=== PATIENT | male | born 1950 | race Caucasian/White ===

== ENCOUNTER → 2018-10-29 09:16 | Outpatient (CLI) | payer MEDICARE, OTHER ==
--- NOTE | ~2018-10-29 | ST ---
PATIENT:ELMA DIAZ MEDICAL RECORD: [id number] SEX: M LOCATION:[facility] ORDER #: ADMISSION DATE: 10/29/18 AGE OF PATIENT: 68 REFERRING PHYSICIAN: INTERPRETING PHYSICIAN: JESSICA RAMIREZ MD DATE OF SERVICE: 10/29/2018 PROCEDURE: Nuclear stress test. INDICATION: Angina, abnormal ECG, hyperlipidemia, family history of coronary artery disease. He was exercised on standard Matt protocol for 7 minutes 50 seconds, terminated due to achievement of max target heart rate response with 32 mCi of sestamibi injected at peak stress, 11 mCi were injected previously for rest images. FINDINGS: Gated SPECT reveals preserved ejection fraction of 57% with good wall motioning, thickening, and brightening throughout all segments. SPECT imaging Cardiolite was used as myocardial perfusion agent. There is reversible ischemia inferiorly. This includes basal, mid, and apical inferior segments. The degree of reversibility is moderate. The amount of myocardium involved is moderate. OVERALL IMPRESSION: 1. This is an abnormal nuclear stress test with moderate reversible ischemia inferiorly. 2. Gated SPECT reveals preserved ejection fraction of 57%. In this patient with ongoing symptomatology, the current scan does suggest the presence of hemodynamically significant coronary artery disease. We will proceed with coronary angiography as a followup study. TRANSINT:[id number] Voice Confirmation ID: [id number] DOCUMENT ID: [id number] JESSICA RAMIREZ MD CC: [id number] DICTATION DATE: 10/31/18 1036 TECHNICAL TESTING ENGINEER: 10/31/181909 DEP CLI 10/29/18 [facility] [address] [place] [address]
== END | disposition home or self-care (01) ==
LOC: D.HCCARDIO 10-18 10:30
DX: I20.9 Angina pectoris, unspecified (principal)

== ENCOUNTER 2018-11-13 11:24 | Outpatient (CLI) | payer MEDICARE, OTHER ==
[~2018-11-13] VITALS: Ht 193 cm; Wt 96.4 kg
--- NOTE | ~2018-11-13 | HEMODYNAMI ---
PATIENT:ELMA DIAZ MEDICAL RECORD: [id number] : 52 LOCATION:[facility] ADMISSION DATE: 11/13/18 Generatedon:11/13/201814:34 Patient name: ELMA DIAZ Patient #: [id number] SSN: DO B: 1950 Date of study: 11/13/2018 Page: Of Hemodynamic Procedure Report Patient Data Patient Demographics Procedure consent was obtained First Name: ELMA Gender: Male Last Name: JOE : 1950 Middle Initial: JADE Age: 68 year(s) Patient #: [id number] Race: Unknown Additional ID: [id number] Contact details Address: [address] [place] [address] State: [place] City: [place] Zip code: [address] Admission Admission Data Admission Date: 11/13/2018 Admission Time: 11:24 Height (in.): 75 BSA: 2.24 (m2) Height (cm.): 190.5 BMI: 26.37 (kg/m2) Weight (lbs.): 211 Weight (kg.): 95.71 Lab Results Lab Result Date: 11/13/2018 Lab Result Time: 0:00 Biochemistry Name Units Result Min Max BUN mg/dl 17 --(---*)-- 7 18 Creatinine mg/dl 1.3 --(---*)-- 0.6 1.3 CBC Name Units Result Min Max Hemoglobin g/dl 14.7 --(-*--)-- 13.5 17.5 Procedure Procedure Types Cath Procedure Diagnostic Procedure LHC LHC w/Coronaries Procedure Description Procedure Date Procedure Date: 11/13/2018 Procedure Start Time: 14:25 Procedure End Time: 14:32 Procedure Staff Name Function Klever Leung MD Performing Physician Azul Rascon RT Monitor Lucian Gupta RN Nurse Harmony Smith RT Scrub Procedure Data Cath Procedure Fluoroscopy Diagnostic fluoroscopy Total fluoroscopy Time: 1.1 time: 1.1 min min Diagnostic fluoroscopy Total fluoroscopy dose: 258 dose: 258 mGy mGy Contrast Material Contrast Material Type Amount (ml) Isovue 300 41 Entry Location Entry Primary Successful Side Size Upsize Upsize Entry Closure John ccessful Closure Location (Fr) 1 (Fr) 2 (Fr) Remarks Device Remarks Radial Right 6 Fr Mechanical artery Short Compression Estimated blood loss: 10 ml Diagnostic catheters Device Type Used For End Catheter Placement DIAGNOSTIC Desoto 110cm 5 Procedure Fr catheter ([id number]) Procedure Complications No complications Procedure Medications Medication Administration Route Dosage 0.9% NaCl I.V. 100 ml/hr Oxygen etCO2 Nasal cannula 2 l/min Heparin Flush Bag added to field 2 bags (1000units/500ml NS) Lidocaine 2% added to field 20 Radial Cocktail added to field 1 syringe (Verapomil 2mg/Nitro 400mcg/Heparin 1500units) Versed I.V. 1 mg Fentanyl I.V. 50 mcg Versed I.V. 1 mg Fentanyl I.V. 50 mcg Radial Cocktail I.A. (Verapomil 2mg/Nitro 400mcg/Heparin 1500units) Hemodynamics Rest BSA: 2.24 (m2) HGB: 14.7 (g/dl) O2 Consumption: Estimated: 245.17 (ml/min) O2 Co nsumption indexed: Estimated:109.45 (ml/min/m) Heart Rate: 52 (bpm) Pressure Samples Time Site Value (mmHg) Purpose Heart Use Rate(bpm) 14:27 LV 110/-2,1 Snapshot 53 14:28 AO 110/59(81) Pullback 52 14:28 LV 112/-4,-2 Pullback 52 Gradients Valve Time Site 1 Site 2 Mean SEP/DFP Peak To Heart Use (mmHg) (sec/min) Peak Rate (mmHg) (bpm) Aortic 14:28 LV AO 2 13 2 52 112/-4,-2 110/59(81) Calculations Valve P-P Mean Valve Index Valve Source Name Gradient Area Flow (cm2) Aortic 2 2 2 2 Snapshots Pre Cath Intra NCS Post Cath Vital Signs Time Heart Resp SPO2 etCO2 NIBP (mmHg) Rhythm Pain Sedation Rate (ipm) (%) (mmHg) Status Level (bpm) 14:11:23 54 20 99 0 161/89(108) NSR 0 (11) 10(A) , No pain 14:15:46 54 13 100 35.5 141/86(120) NSR 0 (11) 10(A) , No pain 14:20:02 54 18 98 36.3 132/81(98) NSR 0 (11) 10(A) , No pain 14:24:18 58 14 99 40.1 126/73(91) NSR 0 (11) 10(A) , No pain 14:28:30 51 16 99 40.1 126/78(95) NSR 0 (11) 9(A) , No pain 14:32:48 58 17 95 37.8 105/61(79) NSR 0 (11) 9(A) , No pain Medications Time Medication Route Dose Verified Delivered Reason Notes Effectiveness by by 14:14:54 0.9% NaCl I.V. 100 Lucian Lucian Per ml/hr Candy Gupta physician RN RN 14:15:03 Oxygen etCO2 2 l/min Lucian Lucian Per Nasal Candy Gupta physician cannula RN RN 14:15:16 Heparin Flush added 2 bags Lucian Lucian used for Bag to Lorandres Gupta procedure (1000units/500ml RN RN NS) 14:15:25 Lidocaine 2% added 20ml Lucian Lucian for local to vial Lorigan Lorigan anesthetic RN RN 14:15:34 Radial Cocktail added 1 Lucian Lucian used for (Verapomil to syringe Lorigan Lorigan procedure 2mg/Nitro RN RN 400mcg/Heparin 1500units) 14:23:14 Versed I.V. 1 mg Lucian Lucian for sedation Candy Gupta RN RN 14:23:23 Fentanyl I.V. 50 mcg Lucian Lucian for sedation Candy Gupta RN RN 14:24:38 Versed I.V. 1 mg Lucian Lucian for sedation Candy Gupta RN RN 14:24:44 Fentanyl I.V. 50 mcg Lucian Lucian for sedation Candy Gupta RN RN 14:26:48 Radial Cocktail I.A. Lucian Klever for (Verapomil Lorigan Madhu vasodilation 2mg/Nitro MERI WILHELM 400mcg/Heparin 1500units) Procedure Log Time Note 13:22:30 Patient Height : 75 inches 13:22:35 Patient Weight : 211 lbs 13:24:35 Lab Result : Creatinine 1.3 mg/dl 13:24:35 Lab Result : BUN 17 mg/dl 13:24:35 Lab Result : Hemoglobin 14.7 g/dl 13:34:06 Lucian Gupta RN sent for patient. Start room use. 13:34:07 Time tracking: Regular hours (M-F 7:00 - 5:00) 13:34:12 Plan of Care:Hemodynamics will remain stable., Cardiac rhythm will remain stable., Comfort level will be maintained., Respiratory function will remain adequate., Patient/ family verbilizes understanding of procedure., Procedure tolerated without complication., Recovers from procedure without complications.. 14:05:00 Patient received from Pre/Post Procedure Room to CCL 2 Alert and oriented. Tansferred to table in Supine position. 14:05:02 Warm blankets applied, and camelia hugger turned on for patient comfort. 14:05:03 Correct patient and procedure confirmed by team. 14:05:07 Signed procedure consent form obtained from patient. 14:05:08 ECG and BP/O2 sat monitors applied to patient. 14:10:14 Vital chart was started 14:10:16 Baseline sample Acquired. 14:10:20 Rhythm: sinus rhythm 14:10:21 Full Disclosure recording started 14:10:26 H&P Date Dictated: 11/13/2018 Within 30 days and on chart., H&P Addendum completed by physician on day of procedure. (MUST COMPLETE FOR ALL OUTPATIENTS). 14:10:27 Pre-procedure instructions explained to patient. 14:10:28 Pre-op teaching completed and patient verbalized understanding. 14:10:29 Family in waiting room. 14:10:32 Patient NPO since Midnight. 14:11:12 Is the patient allergic to Iodine/contrast media? No. 14:11:13 Was the patient premedicated? No 14:14:54 0.9% NaCl 100 ml/hr I.V. was administered by Lucian Gupta RN; Per physician; 14:15:03 Oxygen 2 l/min etCO2 Nasal cannula was administered by Lucian Gupta RN; Per physician; 14:15:16 Heparin Flush Bag (1000units/500ml NS) 2 bags added to field was administered by Lucian Gupta RN; used for procedure; 14:15:25 Lidocaine 2% 20ml vial added to field was administered by Lucian Gupta RN; for local anesthetic; 14:15:34 Radial Cocktail (Verapomil 2mg/Nitro 400mcg/Heparin 1500units) 1 syringe added to field was administered by Lucian Gupta RN; used for procedure; 14:16:06 Patient diabetic? No. 14:16:10 Snore? Yes 14:16:11 Sleep apnea? No 14:16:21 Patient pain scale 0/10 ?. 14:16:32 IV patent on arrival in left forearm with 0.9% NaCl at [facility]. 14:16:48 Lab results completed and on chart. 14:16:52 Right Radial & Right Groin area was prepped with chlora-prep and draped in sterile fashion 14:16:53 Alarms reviewed by R. N. 14:16:54 Sharps counted by scrub and verified by R.N. 14:16:55 Physician paged 14:17:17 Use device set Radial Dx or PCI 14:22:26 Physician arrived 14:22:27 --------ALL STOP TIME OUT------ 14:22:28 Final Timeout: patient, procedure, and site verified with staff and physician. All members of the team are in agreement. 14:22:29 Right Radial & Right Groin site verified by team. 14:22:33 Physical assessment completed. ASA score P 2 - A patient with mild systemic disease as per Klever Leung MD. 14:22:37 Sedation plan: IV Moderate Sedation Medication:Versed, Fentanyl 14:23:14 Versed 1 mg I.V. was administered by Lucian Gupta RN; for sedation; 14:23:23 Fentanyl 50 mcg I.V. was administered by Lucian Gupta RN; for sedation; 14:24:38 Versed 1 mg I.V. was administered by Lucian Gupta RN; for sedation; 14:24:44 Fentanyl 50 mcg I.V. was administered by Lucian Gupta RN; for sedation; 14:25:20 Procedure started. 14:25:44 Local anesthetic to right radial artery with Lidocaine 2% by Klever Leung MD.INITIAL ACCESS ONLY 14:26:13 A 6 Fr Short sheath was inserted into the Right Radial artery 14:26:21 ACIST Syringe (62279) opened to sterile field. 14:26: Medline Cath Pack ([id number]) opened to sterile field. 14:26:22 Bag Decanter (2002S) opened to sterile field. 14:26:22 DIAGNOSTIC WIRE .035 260cm J wire (099606) opened to sterile field. 14:26:23 ACIST Hand Control (83519) opened to sterile field. 14:26:23 ACIST Manifold (86263) opened to sterile field. 14:26:24 Tegaderm 4 x 4 (1626W) opened to sterile field. 14:26:27 MBrace Wrist Support ([id number]) opened to sterile field. 14:26:32 SHEATH 6FR Slender (09-4115) opened to sterile field. 14:26:38 A DIAGNOSTIC Desoto 110cm 5 Fr catheter (176766) was advanced over the wire and used for Procedure. 14:26:48 Radial Cocktail (Verapomil 2mg/Nitro 400mcg/Heparin 1500units) I.A. was administered by Klever Leung MD; for vasodilation; 14:27:10 LV angiography performed. 14:27:59 LV gram done using COOK 14:28:21 EF : 55 % 14:28:31 LCA angiography performed. 14:29:21 RCA angiography performed. 14:29:38 Catheter removed. 14:29:50 Sheath removed intact; hemostasis achieved with Mechanical Compression to the Right Radial artery. 14:29:53 Procedure ended.(Physican Out) 14:30:09 Fluoroscopy time 01.10 minutes. 14:30:18 Fluoroscopy dose: 258 mGy 14:30:18 Flurop Dose total: 258 14:30:22 Contrast amount:Isovue 300 41ml. 14:30:47 Sharps counted by scrub and verified by R.N. 14:30:50 TR band inflated with 10cc of air. 14:30:52 Insertion/operative site no bleeding no hematoma. 14:30:57 Post Procedure Pulses reassessed and unchanged 14:31:07 Post-procedure physical assessment completed. ASA score P 2 - A patient with mild systemic disease as per Klever Leung MD. 14:31:13 Post procedure rhythm: sinus rhythm 14:31:18 Estimated blood loss: 10 ml 14:31:24 Post procedure instruction explained to patient.Patient verbalizes understanding. 14:31:45 Procedure type changed to Cath procedure, Diagnostic procedure, LHC, LHC w/Coronaries 14:31:47 Procedure and supply charges have been captured, reviewed, submitted and are correct. 14:32:13 Procedure Complication : No complications 14:32:16 Vital chart was stopped 14:32:20 See physician's report for complete and final results. 14:32:22 Report given to Pre/Post Procedure Room. 14:32:28 Patient transfered to Pre/Post Procedure Room with Stretcher. 14:32:30 Procedure ended. 14:32:30 Full Disclosure recording stopped 14:32:33 End room use (Document Last) Device Usage Item Name Manufacture Quantity Catalog Hospital Part Current Minimal Lot# / Number Charge Number Stock Stock Serial# Code ACIST Acist 1 58441 357712 895553 [id number] 20 Syringe Medical (11727) Systems Inc Medline Medline 1 [id number] 447309 73390 022126 5 Cath Pack ([id number]) Bag Microtek 1 2001S 555283 88110 535696 5 Decanter Medical Inc. () DIAGNOSTIC St Tod 1 390299 899544 394345 948148 30 WIRE .035 260cm J wire (673157) ACIST Hand Acist 1 16271 952643 087665 531376 5 Control Medical (77247) Systems Inc ACIST Acist 1 34944 264191 961333 543832 5 Manifold Medical (02296) Systems Inc Tegaderm 4 3M 1 1626W 686205 280911 762269 5 x 4 (1626W) MBrace Advanced 1 140-0250-00 342424 54346 006310 5 Wrist Vascular Support Dynamics ([id number]) SHEATH 6FR Terumo 1 [id number] 540601 067304 248320 5 Slender (80-1060) DIAGNOSTIC Terumo 1 40-6219 146912 421964 756934 5 Desoto 110cm 5 Fr catheter (232380) Signature Audit [place] Stage Time Signature Unsigned Intra-Procedure 11/13/2018 Azul Rascon 2:34:33 PM RT(R) Signatures Monitor : Azul Rascon Signature : RT Date : Time : [facility] [address] [place] [address]
[2018-11-13] MEDS ORDERED: MOBIC7.5 MG PO (11:39)
[2018-11-13] MEDS ORDERED: VIBRAMYCIN 100100 MG PO (11:39)
[2018-11-13 11:57] VITALS: BP 142/85; Ht 193 cm; Wt 96.4 kg
[2018-11-13 12:11] LABS: BASOPHILS 0.7 % (0-2); EOSINOPHILS 2.6 % (0-7); HEMATOCRIT 42.9 % (42.0-54.0); HEMOGLOBIN 14.7 g/dL (13.5-17.5); LYMPHOCYTES 39.8 % (15-50); MCH 31.3 pg (26.0-34.0); MCHC 34.3 g/dL (31.0-37.0); MCV 91.5 fL (80.0-100.0); MEAN PLATELET VOLUME 10.5 fL (7.4-10.4); MONOCYTES 11.2 % (2-11); NEUTROPHILS 45.7 % (40-80); PLATELET COUNT 199 10x3/uL (130-400); RBC 4.69 10x6/uL (4.20-6.10); RDW 12.4 % (11.5-14.5); WBC 5.8 10x3/uL (4.8-10.8)
[2018-11-13 12:28] LABS: ANION GAP 11.9 mmol/L (8-16); CALCIUM 9.4 mg/dL (8.5-10.1); CARBON DIOXIDE 27.5 mmol/L (21.0-32.0); CREATININE - SERUM 1.3 mg/dL (0.6-1.3); POTASSIUM - SERUM 4.4 mmol/L (3.5-5.1)
--- NOTE | 2018-11-13 15:16 | NUR ---
PT. SLEEPING. VSS. BP 99/62. NSB 56. O2 98% ON 2LNC. DENIES PAIN. RIGHT TRB. C/D/I. NO BLEEDING. NO HEMATOMA. NO NUMBNESS OR TINGLING.
--- NOTE | 2018-11-13 15:28 | NUR ---
RESTING. RIGHT TRB C//DI. DENIES PAIN. 2+ PULSES
--- NOTE | 2018-11-13 15:43 | NUR ---
REPORT RECEIVED FROM Luz MONTOYA RN TO RESUME CARE. 4CC OF AIR REMOVED FROM TR BAND, NO BLEEDING OR SWELLING NOTED. DRESSING CDI. DENIES PAIN OR NEEDS. CALL LIGHT IN REACH, AT BEDSIDE.
--- NOTE | 2018-11-13 16:10 | NUR ---
3 ADD'L CC OF AIR REMOVED FROM TR BAND. NO BLEEDING OR SWELLING NOTED.
--- NOTE | 2018-11-13 16:20 | NUR ---
IV REMOVED W CATH INTACT, MONITORS AND O2 REMOVED. DISCHARGE TEACHING COMPLETED W PT AND , BOTH VERBALIZED UNDERSTANDING. PT UP TO DRESS FOR DISCHARGE
--- NOTE | 2018-11-13 16:33 | NUR ---
TR BAND AND REMAINING AIR REMOVED, NO BLEEDING OR SWELLING NOTED. 2X2 AND TEGADERM DRESSING APPLIED AND IMMOBILER REPLACED. PT DISCHARGED VIA WC TO PRIVATE VEHICLE.
--- NOTE | 2018-11-19 15:26 | OP ---
PATIENT NAME: ELMA DIAZ MEDICAL RECORD: [id number] :52 LOCATION:[facility] ADMISSION DATE: SURGEON: CHRISTIAN KENNEDY MD DATE OF OPERATION: 11/13/2018 PROCEDURE: Left heart catheterization, selective coronary angiography, right radial approach. CATHETERS: Radial sheath and Union catheter. The procedure was well tolerated. The patient was returned to the saravia. Sheath was removed. TR band was placed. FINDINGS: Left ventriculography in 30-degree COOK view; normal wall motion and normal systolic function. CORONARY ANATOMY: LEFT MAIN: Left main is free of disease. LAD: Free of disease in the diagonal system. CIRCUMFLEX: Free of disease in the marginal system. RIGHT CORONARY ARTERY: Dominant artery, gives rise to PDA, free of disease. IMPRESSION: Normal LV systolic function. Normal coronary anatomy. TRANSINT:[id number] Voice Confirmation ID: [id number] DOCUMENT ID: [id number] CHRISTIAN KENNEDY MD at 1526 CC: [id number] DICTATION DATE: 11/13/18 1437 BIOMASS PLANT MANAGER: 11/13/18 1611 DEP CLI 11/13/18 [facility] [address] [place] [address]
== END 2018-11-13 16:30 | disposition home or self-care (01) ==
LOC: D.CATH 11:24
PROVIDERS: Internal Medicine Interventional Cardiology
DX: R07.9 Chest pain, unspecified (principal); R94.30 Abnormal result of cardiovascular function study, unspecified